=== PATIENT | male | born 2000 | race Caucasian/White ===

== ENCOUNTER 2023-12-03 09:40 | Observation (INO) ==
--- NOTE | 2023-11-27 16:24 | Anesthesiology Consultation ---
Date of Service November 27, 2023 Assessment & Plan (1) Encounter for pre-operative examination: - Infectious disease screening: Per assessment on 11/27/23: No known infectious disease contacts or current infectious disease symptoms. No noted recent Covid positive test result. - Allergy visit (11/26/23): "Chronic idiopathic urticaria.. Patient presents with a history of random hives. I believe that his reactions to medications are also secondary to his underlying hive disorder. The odds of someone developing IgE mediated allergies to multiple medicines is extremely low as each one of these is a unique, random event. Based on the incidence of drug allergies, the likelihood of being allergic to the penicillin family plus tetracyclines plus quinolones plus clindamycin plus sulfonamides is about 1 in 1x10^13. As result of a more likely explanation is that there is a different underlying cause for these reactions. In this case, the history of idiopathic urticaria is the likely reason. Patients can get flareups of urticaria with infections and often these coincide with getting a medication, and as result patients get labeled with having an allergy to that medicine.. In order to sort these out, we will perform skin testing followed by a graded challenge to each medicine on the allergy list, and if skin testing and graded challenge are negative we can be certain that the patient does not have an IgE allergy. The next time he were to need antibiotics, I would recommend that we treat with long-acting antihistamines as these are often able to prevent these nonspecific types of hives.. Testing was negative, so it would be safe to use any penicillin family medication moving forward. I will remove the allergy from the allergy list. It would be safe to use any beta-lactam at this point including all penicillins and cephalosporins. I do recommend that he start twice daily cetirizine and that he continue this every day until night before surgery and that he resume it once he can take medicines by mouth after surgery. He should continue the cetirizine twice a day for at least 2 weeks after the surgery. This should remove the potential of the idiopathic urticaria for flaring up and allow him to tolerate the medication without any problems.. Once he is healed up from the surgery, I recommend that we systematically go through his allergy list and try to clear as many of these allergies as possible. 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 note from 11/26/23* Chart Review Chart Review: Acceptable Risk for Surgery and Patient NOT seen in Pre Admission Testing History Surgery Operation Date: 12/03/23 11:20 Proposed Procedures p Bilateral Mastectomy with Free Nipple Grafting - Rafaela Araujo MD Height/Weight Height: 5 ft 4 in Weight: 64.41 kg Allergies Allergy/AdvReac Type Severity Reaction Status Date / Time ciprofloxacin Allergy Anaphylaxis Verified 11/27/23 14:39 clindamycin Allergy Anaphylaxis Verified 11/27/23 14:39 doxycycline Allergy Anaphylaxis Verified 11/27/23 14:39 meloxicam Allergy hyportensio Verified 11/27/23 14:39 n prednisone Allergy severe Verified 11/27/23 14:39 vomiting sulfamethoxazole Allergy Anaphylaxis Verified 11/27/23 14:39 [From Bactrim] trimethoprim [From Bactrim] Allergy Anaphylaxis Verified 11/27/23 14:39 Medications Home Medications Medication Instructions Recorded Confirmed Last Taken albuterol sulfate 90 mcg/actuation 2 puff inhalation Q6H PRN SOB 10/04/23 11/27/23 Unknown aerosol inhaler (ProAir HFA) epinephrine 0.3 mg/0.3 mL 0.3 mg IM Q4H PRN Allergic Reaction 10/04/23 11/27/23 Unknown injection, auto-injector testosterone cypionate 200 mg/mL 100 mg subcut Q14D 10/04/23 11/27/23 Unknown intramuscular oil cephalexin 500 mg capsule 500 mg PO TID 7 days #21 caps 11/26/23 11/26/23 Unknown lactulose 20 gram/30 mL oral 20 g PO TID 11/26/23 11/27/23 Unknown solution oxycodone-acetaminophen 5 mg-325 1 tab PO Q4H PRN pain 3 days #18 11/26/23 11/26/23 Unknown mg tablet (Percocet) tabs cetirizine 10 mg tablet (Zyrtec) 10 mg PO BID 11/27/23 11/27/23 Unknown Past Medical History Medical History Chronic gastritis Costochondritis Depression with anxiety History of asthma "Cold-induced" History of seizures Stress-induced, "years ago" History of UTI Hx of migraines Lupus Polycythemia, secondary Past Family History Family History Other COPD (chronic obstructive pulmonary disease) Venecia's disease Prostate cancer Past Surgical History Surgical History History of esophagogastroduodenoscopy (EGD) History of hysterectomy with bilateral oophorectomy 08/2023 History of surgery on wrist 07/2010 Slow to wake up after anesthesia Social History Smoking Status: Never smoker Do You Dip or Chew Tobacco: No Hx Alcohol Use: Yes alcohol intake frequency: holidays/special occasions only Hx Substance Use: Yes substance use type: marijuana Last Used Substance Other:: occasional-not even sure when they last had any, been a long time Lab Results Anesthesia Preop Results Results Anesthesia Widget: WBC 6.12 K/ul (4.8-10.8) 11/22/23 Hgb 14.3 g/dl (14.0-18.0) 11/22/23 Hct 41.7 % (42.0-52.0) L 11/22/23 Plt 292 K/uL (130-400) 11/22/23 Na 138 mmol/L (136-145) 11/22/23 K 3.7 mmol/L (3.5-5.1) 11/22/23 Cl 101 mmol/L (98-107) 11/22/23 CO2 31 mmol/L (21-32) 11/22/23 BUN 16 mg/dl (6-23) 11/22/23 Creat 0.92 mg/dl (0.6-1.4) 11/22/23 Glucose Level 149 mg/dl (70-99(Fasting)) H 11/22/23 PT 11.4 Seconds (9.0-12.0) 11/22/23 PTT 30 Seconds (21-31) 11/22/23 INR 1.0 (0.9-1.1) 11/22/23
[2023-12-03] MEDS ORDERED: LIDOCAINE 2% 2 ML VIAL/AMP(20MG/ML) INFIL ONE (10:07)
[2023-12-03] MEDS ORDERED: ONDANSETRON INJ 2 MG/ML 2 ML VIAL ONE (10:07)
[2023-12-03] MEDS ORDERED: ROCURONIUM BROMIDE 10 MG/ML 5 ML VIAL IV ONE (10:07)
[2023-12-03] MEDS ORDERED: fentaNYL citrate PF 100 MCG/2 ML VIAL ONE (10:07)
[2023-12-03] MEDS ORDERED: MIDAZOLAM HCL 1 MG/ML 2ML VIAL ONE (10:07)
[2023-12-03] MEDS ORDERED: PROPOFOL IV EMULSION 10 MG/ML 20 ML VIAL IV ONE (10:07)
[2023-12-03] MEDS: LR 15ML/HR IV SCH (10:52)
[2023-12-03] MEDS ORDERED: ATROPINE SULFATE 0.1 MG/ML 10ML SYR IV PRN (11:08)
[2023-12-03] MEDS ORDERED: ePHEDrine sulfate 50 MG/ML AMP IV PRN (11:08)
--- NOTE | 2023-12-03 11:14 | History & Physical Bridge Note ---
Date of Service December 03, 2023 History & Physical Bridge Note I have examined the patient, reviewed the History & Physical and in the interval since the performance of the History & Physical I have noted the following changes of clinical significance: no changes noted
[2023-12-03] MEDS: ceFAZolin 2000MG 2,000 MG/15 ML SYR IV SCH ×2 (11:30→20:40)
[2023-12-03] MEDS ORDERED: ACETAMINOPHEN 1000 MG/100 ML IV IV ONE (11:55)
[2023-12-03] MEDS: LIDOCAINE 1%/EPINEPHRINE 1:100,000 20 ML VIAL ONE (13:11)
[2023-12-03] MEDS: BUPIVACAINE 0.25% PF 30 ML VIAL ONE (13:12)
[2023-12-03] MEDS ORDERED: NEOSTIGMINE METHYLSULFATE 1 MG/ML 10ML VIAL ONE (13:49)
[2023-12-03] MEDS ORDERED: GLYCOPYRROLATE 0.2 MG/ML VIAL ONE (13:49)
--- NOTE | 2023-12-03 14:00 | Post Operative Brief Note ---
PG Immediate Post Op with CF Date of Surgery December 03, 2023 Pre & Post Diagnosis Operation Date: 12/03/23 11:20 Pre-Op Diagnosis: Gender Dysphoria Post-Op Diagnosis: Gender Dysphoria I identified the patient and participated in the time-out.: Yes Procedure Operation Date: 12/03/23 11:20 Actual Procedures p Bilateral Mastectomy with Free Nipple Grafting(Bilateral) - Rafaela Araujo MD Surgeon Rafaela Araujo MD Weight Loss Physician Randee Marin PA-C Estimated Blood Loss 10 Findings Consistent with Post-Op Diagnosis Specimens Specimen Description: A: Left breast tissue B: Right breast tissue Drains Kulwant-Weinberg Drain
[2023-12-03] MEDS: fentaNYL citrate PF 100 MCG/2 ML VIAL IV PRN (14:25)
--- NOTE | 2023-12-03 14:29 | Operative Report ---
PG Post Operative Report Pre & Post Diagnosis Operation Date: 12/03/23 11:20 Pre-Op Diagnosis: Gender Dysphoria Post-Op Diagnosis: Gender Dysphoria I identified the patient and participated in the time-out.: Yes Procedure Operation Date: 12/03/23 11:20 Actual Procedures p Bilateral Mastectomy with Free Nipple Grafting(Bilateral) - Rafaela Araujo MD Surgeon Rafaela Araujo MD Curam Developer Randee Marin PA-C Estimated Blood Loss 10 Findings Consistent with Post-Op Diagnosis Specimens bilateral breasts to pathology Drains [id number] Anesthesia Type General Complications none Indications transgender male desiring gender affirming mastectomy Description of Procedure The risks benefits and alternatives of the procedure were explained to the patient, who agreed and signed consent. He was identified and marked in the preoperative holding area. I marked the incisions about 1 cm superior to the inframammary folds and marked the superior incision in an elliptical fashion in order to provide a horizontal scar pattern if possible. Nipple site was confirmed with the patient. He was brought to the operating room where he was placed under general anesthesia in supine position without incident. Surgical site was prepped and draped sterilely. A time out procedure was performed. 1% lidocaine with epinephrine was used to anesthetize the planned incisions. Nipple areolar complex grafts were harvested. I elected to use a 25 mm cookie cutter to size the nipple areolar complex. It was harvested using a 15 blade scalpel and was defatted using a curved iris scissor. They were placed on the back table in a saline soaked sponge until I was ready to place the grafts. I began by making the inferior incision using 15 blade scalpel. Incision was deepened through dermis using electrocautery, and deepened down to the chest wall. I began raising the breast off of underlying pectoralis fascia until I could confirm that the wound could be closed without tension. I then confirmed marking of the superior incision, which was made with a 15 blade scalpel and deepened using electrocautery. The breast was passed off as specimen. Superiorly, breast was undermined to the clavicle and the superior flap was further thinned until it was of uniform thickness, approximately 1 cm in thickness and just slightly thicker than the thickness of the abdominal subcutaneous tissue. Throughout dissection, hemostasis was achieved using the bovie. I did perform some additional undermining inferiorly along the inframammary fold to facilitate closure and disrupt the inframammary fold. Prior to closure, the wound was irrigated, examined for hemostasis. A 15 Turkmen Elio drain was placed in the wound bed and brought out through a separate stab incision laterally.Deep dermis was closed using 2-0 Vicryl interrupted sutures, superficial dermis closed using 2-0 PDO running Quill suture, and subcuticular wound closure was performed using 3-0 Monocryl. Following closure, the nipple areolar complex was inset. I made a circular incision at the lateral border of pectoralis and just superior to the incision. This was de-epithelialized. The nipple areolar graft was inset first using 5-0 plain gut suture. An identical procedure was performed on the right side. The graft was inset using 5-0 fast absorbing suture. 6 4-0 silk tie over bolster sutures were placed, and a Xeroform and cotton bolster was placed. Dermabond Prineo was applied to the incisions. Dry dressings and drain sponges were placed. A binder was placed. Procedure was tolerated well. Patient was awakened and transferred to the recovery room in satisfactory condition. Randee Marin PA-C was present and scrubbed throughout the entire procedure. She assisted in retraction, hemostasis, and simultaneous wound closure. I attest to the content of the Intraoperative Record and any orders documented therein. Any exceptions are noted below.
[2023-12-03] MEDS: ONDANSETRON INJ 2 MG/ML 2 ML VIAL IV PRN ×2 (14:40→20:43)
--- NOTE | 2023-12-03 14:40 | Anesthesiology Progress Note ---
Date of Service December 03, 2023 Anesthesia Post Procedure Vital Signs Vital Signs: Temp Pulse Resp BP Pulse Ox O2 Del Method 12/03/23 10:18 36.9 C 70 20 123/84 100 Room Air Pain Intensity Bilateral Generalized: Pain Intensity: 2 Transfer of Care Handoff Completed per policy Notes Mental Status: alert / awake / arousable and participated in evaluation Patient Amnestic to Procedure: Yes Nausea / Vomiting: adequately controlled Pain: adequately controlled Airway Patency, RR, SpO2: stable & adequate BP & HR: stable & adequate Hydration State: stable & adequate Anesthetic Complications: no major complications apparent and Pt Satisfied with anesthetic care
[2023-12-03] MEDS: DROPERIDOL 5 MG/2 ML VIAL IV STA (15:17)
[2023-12-03] MEDS ORDERED: MoRPHine SULFATE 4 MG/ML 1 ML CARP\\VIAL IV PRN (15:56)
[2023-12-03] MEDS ORDERED: diphenhydrAMINE Capsule 25 MG CAP PO PRN (15:56)
[2023-12-03] MEDS ORDERED: MoRPHine SULFATE 2 MG/ML CARP IV PRN (15:56)
[2023-12-03] MEDS ORDERED: oxyCODONE/ACETAMINOPHEN 5mg/325mg TAB PO PRN ×2 (15:56)
[2023-12-03] MEDS ORDERED: diphenhydrAMINE 50 MG/ML VIAL IV PRN (15:56)
[2023-12-03] MEDS ORDERED: LORazepam 0.5 MG TAB PO PRN (15:56)
--- NOTE | 2023-12-03 15:57 | Anesthesiology Progress Note ---
Date of Service December 03, 2023 Anesthesia Post Procedure Vital Signs Vital Signs: Temp Pulse Pulse Resp BP Pulse Ox O2 Del Method 12/03/23 15:01 63 17 119/62 96 Oxymask 12/03/23 14:40 67 25 H 130/70 100 Oxymask 12/03/23 14:30 77 17 130/59 L 100 Oxymask 12/03/23 14:20 96 H 19 134/69 100 Oxymask 12/03/23 14:12 36.1 C L 54 L 14 120/58 L 100 Oxymask 12/03/23 10:18 36.9 C 70 20 123/84 100 Room Air O2 Flow Rate 12/03/23 15:01 2 12/03/23 14:40 3 12/03/23 14:30 3 12/03/23 14:20 5 12/03/23 14:12 7 12/03/23 10:18 Pain Intensity Bilateral Generalized: Pain Intensity: 2 Transfer of Care Handoff Completed per policy Notes Mental Status: alert / awake / arousable and participated in evaluation Patient Amnestic to Procedure: Yes Nausea / Vomiting: adequately controlled Pain: adequately controlled Airway Patency, RR, SpO2: stable & adequate BP & HR: stable & adequate Hydration State: stable & adequate Anesthetic Complications: no major complications apparent and Pt Satisfied with anesthetic care
[2023-12-03] MEDS ORDERED: PROMETHAZINE HCL 12.5 MG in SODIUM CHLORIDE 0.9% 50 ML IV PRN (16:00)
--- NOTE | 2023-12-03 16:00 | Surgery Progress Note ---
Date of Service December 03, 2023 Assessment & Plan (1) S/P mastectomy, bilateral: Plan: Shane is doing well. Post-op instructions were reviewed with him and his family. Anticipate discharge tomorrow. Admission and Anticipated Discharge Date Admission Date: December 03, 2023 Subjective Shane is resting comfortably. Pain is well controlled. Family is with him in the room. Physical Exam Physical Exam: drains with scant serosang output. binder in place, no saturation on gauze Results & Data Vital Signs (Past 12 Hours) Vital Signs Temp Pulse Pulse Resp BP Pulse Ox O2 Del Method 12/03/23 15:01 63 17 119/62 96 Oxymask 12/03/23 14:40 67 25 H 130/70 100 Oxymask 12/03/23 14:30 77 17 130/59 L 100 Oxymask 12/03/23 14:20 96 H 19 134/69 100 Oxymask 12/03/23 14:12 36.1 C L 54 L 14 120/58 L 100 Oxymask 12/03/23 10:18 36.9 C 70 20 123/84 100 Room Air O2 Flow Rate 12/03/23 15:01 2 12/03/23 14:40 3 12/03/23 14:30 3 12/03/23 14:20 5 12/03/23 14:12 7 12/03/23 10:18 PG Care Time/CCT Total # of Minutes Spent Total Time Spent with Patient: Total time spent is greater than 50% in coordination of care (as documented) at patient's floor/unit and/or counseling patient: Coding Level of Care Code 08366 Post Operative Follow-Up Diagnoses S/P mastectomy, bilateral Z90.13
[2023-12-03] MEDS: DROPERIDOL 5 MG/2 ML VIAL ONE (16:07)
[2023-12-03] MEDS: LACTATED RINGER'S 1,000 ML IV SCH (17:47)
[2023-12-03] MEDS: ACETAMINOPHEN 325 MG TAB PO PRN (21:12)
[2023-12-03] MEDS: COUGH DROP (SUGAR FREE) LOZ 24 LOZ/1 BOX BUCCAL ONE (23:49)
[2023-12-04] MEDS: MULTIVITAMIN TAB PO SCH (08:39)
--- NOTE | 2023-12-04 10:06 | Surgery Progress Note ---
Date of Service December 04, 2023 Assessment & Plan (1) S/P mastectomy, bilateral: Plan: Shane is now 1 day post-op. He is doing very well! Pain is controlled with PRN Tylenol. He was able to get his prescription for both post-op pain med and post- op antibiotic (he will begin this when he gets home). Lovenox 40 mg SQ x 1 ordered for this morning. He is voiding on his own and is tolerating a regular diet. Dressings removed today in hospital and there are no signs of active bleeding. He is aware that he is to keep his binder on day and night and he is to keep his chest dry. He can sponge bathe as needed. He will return next Sunday to office for bolster removal. He is ok for discharge to home later. Return precautions reviewed. He was highly encouraged to call with any questions or concerns. Admission and Anticipated Discharge Date Admission Date: December 03, 2023 Subjective Shane is 1 day post-op. He is s/p Bilateral Mastectomy with Free Nipple Grafting. He reports that he is doing well. His pain is controlled with PRN Tylenol. He reports that he did have some post-op nausea yesterday, but that has since resolved. He denies any new concerns or complaints. Review of Systems Constitutional: as per Subjective / HPI; no fever and no chills Cardiovascular: no chest pain, no chest pain at rest, no chest pain with activity, no dyspnea and no calf pain Gastrointestinal: no abdominal pain, no nausea and no vomiting Physical Exam Physical Exam: On physical exam- dressings removed today. Incisions are intact with surgical glue in place. Nipple bolsters in place. Bilateral drains in place with serosang output. No evidence of blood clots in drainage bulbs. No signs of active bleeding on exam. Minimal post-op bruising. Constitutional: WD/WN, vitals as above Respiratory: normal respiratory effort; no respiratory distress and no labored breathing Psychiatric: A+Ox3, euthymic affect Results & Data Vital Signs (Past 12 Hours) Vital Signs Temp Pulse Pulse Resp BP Pulse Ox O2 Del Method 12/04/23 07:17 36.7 C 71 16 112/67 98 Room Air 12/04/23 03:49 37.1 C 64 18 110/72 99 Room Air 12/03/23 23:10 37.1 C 88 16 116/72 98 Room Air PG Care Time/CCT Total # of Minutes Spent Total Time Spent with Patient: Total time spent is greater than 50% in coordination of care (as documented) at patient's floor/unit and/or counseling patient: Coding Level of Care Code 09290 Post Operative Follow-Up Diagnoses S/P mastectomy, bilateral Z90.13
[2023-12-04] MEDS: ENOXAPARIN INJ 40 MG/0.4 ML SYR SQ ONE (11:30)
--- NOTE | 2023-12-04 15:33 | Discharge Summary ---
Date of Service December 04, 2023 Admission HPI Per Admitting Provider Please see admission H and P Admission Exam Per Admitting Provider Please see admission H and P. Principal Diagnosis [id number] Transgender Person Discharge Exam On physical exam- dressings removed today. Incisions are intact with surgical glue in place. Nipple bolsters in place. Bilateral drains in place with serosang output. No evidence of blood clots in drainage bulbs. No signs of active bleeding on exam. Minimal post-op bruising. Constitutional WD/WN, vitals as above Respiratory normal respiratory effort; no respiratory distress and no labored breathing Psychiatric A+Ox3, euthymic affect Discharge Data Allergies Allergy/AdvReac Type Severity Reaction Status Date / Time ciprofloxacin Allergy Anaphylaxis Verified 12/03/23 10:25 clindamycin Allergy Anaphylaxis Verified 12/03/23 10:25 doxycycline Allergy Anaphylaxis Verified 12/03/23 10:25 meloxicam Allergy hyportensio Verified 12/03/23 10:25 n prednisone Allergy severe Verified 12/03/23 10:25 vomiting sulfamethoxazole Allergy Anaphylaxis Verified 12/03/23 10:25 [From Bactrim] trimethoprim [From Bactrim] Allergy Anaphylaxis Verified 12/03/23 10:25 Procedures Performed Operation Date: 12/03/23 11:20 Actual Procedures p Bilateral Mastectomy with Free Nipple Grafting(Bilateral) - Rafaela Araujo MD Ordered Studies 12/03/23 05:00 US - OR guided needle placemen Routine Hospital Course (1) S/P mastectomy, bilateral: Shane presented to [facility] for planned Bilateral Non-Cancerous Mastectomy with Free Nipple Graft. There were no intraoperative complications and patient was transferred to Med/Surg for overnight observation. He did well. Pain was controlled with PRN Tylenol. He was deemed acceptable for discharge. Discharge instructions reviewed. He has planned follow-up next week in office for bolster removal. All questions answered. Please see surgical progress note information below: Shane is now 1 day post-op. He is doing very well! Pain is controlled with PRN Tylenol. He was able to get his prescription for both post-op pain med and post- op antibiotic (he will begin this when he gets home). Lovenox 40 mg SQ x 1 ordered for this morning. He is voiding on his own and is tolerating a regular diet. Dressings removed today in hospital and there are no signs of active bleeding. He is aware that he is to keep his binder on day and night and he is to keep his chest dry. He can sponge bathe as needed. He will return next Sunday to office for bolster removal. He is ok for discharge to home later. Return precautions reviewed. He was highly encouraged to call with any questions or concerns. Total Time Total Time Spent Total Time Spent (In Minutes): 5 Discharge Plan Discharge Items Patient Disposition: Home - Self-Care Reason For Visit: POST-OP Discharge Diagnosis: s/p top surgery for gender affirmation Activity: As commented below Non-emergency contact: Surgeon Call non-emergency contact if: you have any medication questions, your pain is not controlled, you have a fever and your wound has increased redness Follow-up/Referrals: Randee Marin PA-C [Physician Clinical Aide] - Cameron Hagan M.D. [Primary Care Provider] - Diet: Regular Addtl Attending Provider Instructions: ACTIVITY RECOMMENDATIONS: __Normal activities _x_No bending, lifting or straining. Keep arms at shoulder height or below __No driving __Driving allowed when you are off pain medications _x_Walking permitted __You should have help at home for ___ days DRESSINGS: __No dressings required _x_Keep dressings dry/in place until first office visit. Binder must stay on at all times __Remove dressings ___ and leave dressings off __Apply ice ___ days __Remove dressings and reapply garment __Apply antibiotic ointment (Bacitracin, Neosporin, etc) to wounds 3-4 times/day for 10 days BATHING: _x_Keep dressings dry _x_Sponge bathing permitted away from surgical dressings __Showering permitted _x_No swimming, hot tubs or soaking in a tub MEDICATIONS: Resume previous medications unless instructed otherwise by your surgeon. _x_Do not use aspirin, Motrin, Advil or Ibuprofen as these may promote bleeding. Please use Tylenol. _x_Prescription(s) provided: pain medication and antibiotics were provided at your last office visit. begin antibiotics today OTHER INSTRUCTIONS: _x_Record drain output 2-3 times per day. Drain is ready for removal when output is 10cc/24 hours for 2 days SPECIAL CARE INSTRUCTIONS: * It is normal to have a mild fever after surgery. If your temperature is higher than 101.5 degrees F, please call the office at [phone]. * Constipation is a typical side effect of pain medication. An [id number] stool softener will help relieve this. * Leaking around surgical drains may occur and should not cause concern. Sometimes these drains become clogged. If this happens, remove the bulb and milk the clot out of the tube, then replace the bulb. * Drainage from wounds after liposuction is normal and should be expected. Garments will become soiled. You should protect furniture and bedding. This drainage should mostly subside within 2-3 days. Leave garments in place unless instructed to remove them. * If you have unusual drainage from a wound or are concerned you have an infection or have any questions or concerns, please call the office at [phone]. FOLLOW UP VISIT: If not already scheduled, please call the office, , when you return home after surgery to schedule an appointment to be seen in __6_ days. Pending Studies at Discharge: Yes Stand-Alone Forms: My [facility], Pain - Opioid Pain Management, Smoking Cessation Medications and DC Order Prescriptions: Continued testosterone cypionate 200 mg/mL oil 100 mg subcut Q14D albuterol sulfate [ProAir HFA] 90 mcg/actuation HFA aerosol inhaler 2 puff inhalation Q6H PRN (Reason: SOB) epinephrine 0.3 mg/0.3 mL auto-injector 0.3 mg IM Q4H PRN (Reason: Allergic Reaction) lactulose 20 gram/30 mL solution 20 g PO TID cephalexin 500 mg capsule 500 mg PO TID 7 Days Qty: 21 0RF Rx Instructions: Begin prescription when discharged home from surgery. oxycodone-acetaminophen [Percocet] 5-325 mg tablet 1 tab PO Q4H PRN (Reason: pain) 3 Days Qty: 18 0RF Rx Instructions: Initial therapy. cetirizine [Zyrtec] 10 mg Tablet 10 mg PO BID Patient Comments: up until surgery date, then will begin again on 12/04/23 for 2-3 weeks while on abx and then stop. Discharge Orders: Discharge Order (Routine); Ordered 12/04/23 Ordered By: Randee Mazariegos/Other Patient Handouts: Mastectomy Chest Contouring, Kulwant Weinberg Drain Tube Dc, Post Op Drain Emptying Steps Admission Data Admit Date/Time: 12/03/23 14:11 Attending Provider: Rafaela Araujo Admit Provider: Rafaela Araujo Primary Care Provider: Camerno Hagan Other Interventions: Discharge Summary Assessment (RN) Last Done: 12/04/23 11:51 Coding Level of Care Code 37904 OBS Care - Discharge Diagnoses S/P mastectomy, bilateral Z90.13
== END 2023-12-04 12:45 | disposition home or self-care (01) ==
LOC: EDSEX → ASU 09:40 → 3W 09:40